=== PATIENT | male | born 1935 | race Caucasian/White ===

== ENCOUNTER 2021-04-16 02:23 | Inpatient (IN) | payer OTHER ==
[2021-04-16] VITALS (9 sets, daily range): BP systolic 86–106; BP diastolic 35–59
[~2021-04-16] VITALS: Ht 182.9 cm; Wt 115.8 kg
--- NOTE | ~2021-04-16 | EMS ---
[address] [address] EMS Patient Care Report Name: BEAU MCCLAIN Room #: [facility] M.RScotty#: [id number] Admission: Attend Phys: Discharge: Date of : [birth year] Report #: [id number] THIS REPORT FOR: //name// Report Transmitted: 04/16/2021 02:55 EMS Care Summary [facility] MED-ACT Incident [id number] @ 04/16/2021 01:25 Incident Location [address] [place] [address] Patient BEAU MCCLAIN Male, 86 Years 1935 Patient Address [address] [place] [address] Patient History Congestive Heart Failure (CHF),Stroke/CVA,Coronary Artery Bypass Graft (CABG), Patient Allergies Penicillin allergy, Patient Medications Other, Fish Oil, Xalatan, Spironolactone, Atorvastatin, Cephalexin, Calcium, Chief Complaint right leg pain and weeping Disposition Transported No Lights/[place]ana Dispatch Reason Sick Person Transported To [facility] Narrative Arriving on scene to find the patient, Beau Mcclain, lying in bed and appearing to be in no obvious distress. Beau stated that he started to have really bad leg pain rating at an 8 out of 10. He stated that it was due to the edema and that his leg was also weeping. Beau stated that this has happened [address] [address] EMS Patient Care Report Name: BEAU MCCLAIN Room #: [facility]..#: [id number] Admission: Attend Phys: Discharge: Date of : [birth year] Report #: [id number] before but not ever this painful. He requested to be transported to [facility], EMS informed him that Shawn is on High Volume. He stated that he would then like to be taken to [facility]. Beau was assisted via stand and sit onto the cot. Transporting to [facility], Beau was given NaCl for his low blood pressure, witch then improved his blood pressure. When arriving at [facility], Beau had a sudden onset of chest pain, EMS administered aspirin. There were no other additional findings on continuous assessments. Arriving at [facility] ED, Beau was taken to room 9 and moved via lateral sheet drag. Report and care was given to RN. Initial Vitals @01:37P: 73,BP: 93/56,SpO2: 88, @01:59P: 59,BP: 96/61,SpO2: 83, @01:51P: 97,SpO2: 96,OH Suspected: false @01:48P: 111,BP: 93/61,SpO2: 95, @01:59P: 192,SpO2: 80, @02:12P: 162, @02:02P: 161,SpO2: 95, @02:03P: 122,SpO2: 53, @02:13P: 86,BP: 100/56,SpO2: 97, @01:36P: 71,R: 16,BP: 92/56,Pain: 8/10,GCS: 15,Temp: 98F,SpO2: 92,Revised Trauma: 12, Impression Pain (Non-Traumatic) Procedures @01:54Saline Lock cc (18 ga) Site: Antecubital-LeftResponse: UnchangedFailed@02:00Normal Saline (.9% NaCl) 250cc (18 ga) Site: Antecubital-RightResponse: UnchangedSucceeded@02:02Surgical Mask on PatientResponse: Unchanged@02:25Aspirin - 324 Milligrams (mg) - OralResponse: Unchanged@01:5112-Lead ECG Timeline 01:24,Call Received 01:24,Psap Call 01:25,Dispatched 01:27,En Route 01:33,On Scene 01:35,At Patient 01:36,BP: 92/56 M,PULSE: 71,RR: 16 R,SPO2: 92 Ox,ETCO2: ,BG: ,PAIN: 8,GCS: 15, 01:37,BP: 93/56 M,PULSE: 73,RR: R,SPO2: 88 Ox,ETCO2: ,BG: ,PAIN: ,GCS: , 01:48,BP: 93/61 M,PULSE: 111,RR: R,SPO2: 95 Ox,ETCO2: ,BG: ,PAIN: ,GCS: , 01:51,12-Lead ECG, 01:51,BP: / M,PULSE: 97,RR: R,SPO2: 96 Ox,ETCO2: ,BG: ,PAIN: ,GCS: , 01:54,Saline Lock cc 18 ga Site: Antecubital-Left,Response: UnchangedFailed, [address] [address] EMS Patient Care Report Name: BEAU MCCLAIN Room #: PRE ER M.R.#: [id number] Admission: Attend Phys: Discharge: Date of : [birth year] Report #: [id number] 01:59,BP: / M,PULSE: 192,RR: R,SPO2: 80 Ox,ETCO2: ,BG: ,PAIN: ,GCS: , 01:59,BP: 96/61 M,PULSE: 59,RR: R,SPO2: 83 Ox,ETCO2: ,BG: ,PAIN: ,GCS: , 02:00,Normal Saline (.9% NaCl) 250cc 18 ga Site: Antecubital-Right,Response: UnchangedSucceeded, 02:02,Depart Scene 02:02,BP: / M,PULSE: 161,RR: R,SPO2: 95 Ox,ETCO2: ,BG: ,PAIN: ,GCS: , 02:02,Surgical Mask on Patient,Response: Unchanged 02:03,BP: / M,PULSE: 122,RR: R,SPO2: 53 Ox,ETCO2: ,BG: ,PAIN: ,GCS: , 02:12,BP: / M,PULSE: 162,RR: R,SPO2: Ox,ETCO2: ,BG: ,PAIN: ,GCS: , 02:13,BP: 100/56 M,PULSE: 86,RR: R,SPO2: 97 Ox,ETCO2: ,BG: ,PAIN: ,GCS: , 02:20,At Destination 02:25,Aspirin - 324 Milligrams (mg) - Oral,Response: Unchanged 02:43,Call Closed Disclaimer v1.1 Copyright 2020 [employer] This EMS Care Summary contains data elements from the applicable legal record (which may be displayed differently). It is designed to provide pertinent information for the following purposes: continuity of care, clinical quality, and state data reporting. The complete legal record is available to ED staff and administrators of the receiving hospital in [employer]'s Patient Tracker. All data is provided "as is."
[~2021-04-16 02:23] MED LIST: ALLERGY10 M1 PO; ASPIRIN EC81 M1 PO; CALCIUM 600 +1 EAC1 PO; CIPRO250 M1 PO; CITRACAL + BON1 EACH PO; FISH OIL 1,0001 EAC5 PO; GLUCOSAMINE &1 EAC1 PO; HYDROCODON-ACE1 EAC1 PO; LIPITOR20 MG PO; LISINOPRIL-HCT1 EAC1 PO; MULTIVITAMINS PO; PERCOCET 7.5-31 EACH PO
[2021-04-16 03:34] LABS: ABSOLUTE NEUTROPHILS 6.5 thou/uL (1.4-8.2); BASOPHILS 0.3 % (0.0-2.0); EOSINOPHILS 0.8 % (0.0-3.0); HEMATOCRIT 20.1 % (42.0-52.0); LYMPHOCYTES 10.3 % (24.0-44.0); MCH 25.7 pg (26.0-34.0); MCHC 31.7 g/dL (28.0-37.0); MONOCYTES 7.3 % (1.0-8.0); PLATELET COUNT 287 thou/uL (150-400); POLYS 81.3 % (36.0-66.0); RBC 2.48 mil/uL (4.50-6.00); RDW 18.6 % (10.5-14.5)
[2021-04-16 03:40] LABS: HEMOGLOBIN 6.4 gm/dL (14.0-18.0)
[2021-04-16 03:49] LABS: URINE BILIRUBIN NEGATIVE (Negative); URINE BLOOD NEGATIVE (Negative); URINE CLARITY CLEAR; URINE COLOR YELLOW; URINE GLUCOSE-RANDOM* 2+ (Negative); URINE KETONES NEGATIVE (Negative); URINE LEUKOCYTES-REFLEX NEGATIVE (Negative); URINE NITRITE-REFLEX NEGATIVE (Negative); URINE PROTEIN (DIPSTICK) NEGATIVE (Negative); URINE SPECIFIC GRAVITY <= 1.005 (1.005-1.035); URINE UROBILINOGEN 0.2 E.U./dl (0.2-1.0)
[2021-04-16 03:55] LABS: CALCIUM 7.8 mg/dL (8.5-10.1); CREATININE 1.6 mg/dL (0.7-1.3); POTASSIUM 4.4 mmol/L (3.5-5.1)
[2021-04-16 04:42] LABS: ALBUMIN 1.9 g/dL (3.4-5.0); TOTAL PROTEIN 5.1 g/dL (6.4-8.2)
--- NOTE | 2021-04-16 05:20 | NUR ---
HAND OFF TOOL SENT TO CCU AT THIS TIME
--- NOTE | 2021-04-16 05:28 | NUR ---
Called to give report and was told LINDSAY Martinez was with a pt in an isolated room and will call back
--- NOTE | 2021-04-16 05:42 | NUR ---
2x call to give report to LINDSAY Mi, was told LINDSAY Mi is still in a pt's room and will have him call back
--- NOTE | 2021-04-16 05:55 | NUR ---
CHARGE NURSE ATTEMPTED TO CALL REPORT AT THIS TIME. PLACED ON HOLD FOR 5 MINUTES
--- NOTE | 2021-04-16 06:57 | EKG ---
[place] [address] [facility] [place] [address] ELECTROCARDIOGRAM REPORT Name: BEAU CASTILLO Room #: 201-P [facility] IN M.R.#: [id number] Admission: 04/16/21 Attend Phys: Diann Degroot MD Discharge: Date of : [birth year] Report #: [id number] [facility] ED Test Date: 2021-04-16 Test Time: 03:13:05 Pat Name: BEAU CASTILLO Department: Room: 201 Gender: M Wound Care Coordinator: MERCYLOVE : 1935 Requested By: Samir Davila Order Number: [id number] MD: Henry Cross Measurements Intervals [place] Rate: 70 P: 0 WI: 31 QRS: -62 QRSD: 209 T: 116 QT: 520 QTc: 562 Interpretive Statements Ventricular-paced rhythm No further analysis attempted due to paced rhythm No previous ECG available for comparison Electronically Signed On 04-16-2021 6:56:52 CDT by Henry Cross [email or web address] <ELECTRONICALLY SIGNED> By: Henry Cross MD, [facility] 04/16/21 0656 0313 0313 Henry Cross MD, FACC /EPI
[2021-04-16 14:13] LABS: HEMATOCRIT 23.2 % (42.0-52.0); HEMOGLOBIN 7.4 gm/dL (14.0-18.0)
--- NOTE | 2021-04-16 14:30 | 2DMMODE ---
[facility] [place] [address] 2 D/M-MODE ECHOCARDIOGRAM Name: BEAU CASTILLO Room #: 201-P ADM IN M.R.#: [id number] Admission: 04/16/21 Attend Phys: Diann Degroot MD Discharge: Date of : [birth year] Report #: [id number] THIS REPORT FOR: cc: Wyatt Araujo MD, Michael B. MD Lundgren, Craig H. MD [facility] ~ APPROVED REPORT Study performed: 04/16/2021 12:37:21 EXAM: Comprehensive 2D, Doppler, and color-flow Echocardiogram Patient Location: Bedside Room #: 201 Status: routine BSA: 1.94 HR: 72 bpm BP: 89/45 mmHg Rhythm: Pacemaker Other Information Study Quality: Good Indications Atrial Fibrillation Pacemaker CAD Elevated Troponin Hypertension/HDD 2D Dimensions RVDd: 54.02 mm IVSd: 12.86 (7-11mm) LVOT Diam: 21.84 (18-24mm) LVDd: 54.70 mm PWd: 12.88 (7-11mm) Ascending Ao: 37.58 (22-36mm) LVDs: 46.93 (25-40mm) Left Atrium: 41.49 (27-40mm) Aortic Root: 41.10 mm IVC: 21.00 mm Volumes Left Atrial Volume (Systole) Single Plane 4CH: 77.01 mL Single Plane 2CH: 68.87 mL LA ESV Index: 47.00 mL/m2 Aortic Valve [facility] [address] [place] [address] 2 D/M-MODE ECHOCARDIOGRAM Name: BEAU CASTILLO Room #: 201-P [facility] IN ..#: [id number] Admission: 04/16/21 Attend Phys: Ml Portillo Discharge: Date of : [birth year] Report #: [id number] AoV Peak Romeo.: 2.36 m/s AO Peak Gr.: 22.27 mmHg LVOT Max P.72 mmHg AO Mean Gr.: 10.84 mmHg LVOT Mean P.48 mmHg AO V2 Mean: 1.51 m/s LVOT Max V: 0.96 m/s AO V2 VTI: 44.02 cm LVOT Mean V: 0.53 m/s SONAM (VTI): 1.74 cm2 LVOT V1 VTI: 20.50 cm SONAM Vmax: 1.53 cm2 SV (LVOT): 76.76 mL Pulmonary Valve PV Peak Romeo.: 0.86 m/s PV Peak Gr.: 2.94 mmHg Tricuspid Valve TR Peak Romeo.: 3.20 m/s TR Peak Gr.: 40.97 mmHg PA Pressure: 51.00 mmHg Left Ventricle Left ventricle is at the upper limits of normal. There is global hypokinesis of the left ventricle. Inferoapical aneurysm Mild concentric left ventricular hypertrophy. Left ventricular systolic function is severely decreased. LVEF 25%. This study is not technically sufficient to allow evaluation of the LV diastolic function due to atrial fibrillation. Right Ventricle Right ventricle is dilated. Right ventricle is hypokinetic. Atria Left atrium is dilated. Right atrium is dilated. Aortic Valve Aortic valve is calcified, trileaflet. Mild aortic regurgitation. Mild aortic stenosis. Mitral Valve Moderate mitral annular calcification Moderate mitral regurgitation. No evidence of mitral valve stenosis. Tricuspid Valve The tricuspid valve is normal in structure. There is mild tricuspid regurgitation. Estimated pulmonary artery pressure of 50 mmHg. There is moderate pulmonary hypertension. Pulmonic Valve [facility] [address] [place] [address] 2 D/M-MODE ECHOCARDIOGRAM Name: JONATHANBEAU Hilario Room #: 201-P [facility] IN [facility].#: [id number] Admission: 04/16/21 Attend Phys: Ml Portillo Discharge: Date of : [birth year] Report #: [id number] The pulmonary valve is normal in structure. Mild pulmonic regurgitation. Great Vessels The aortic root is normal in size. IVC is dilated and collapses <50% with inspiration. Pericardium There is no pericardial effusion. <Conclusion> Left ventricular systolic function is severely decreased. There is global hypokinesis of the left ventricle. Inferoapical aneurysm LVEF 25%. Both atria are dilated. Aortic valve is calcified, trileaflet. Mild aortic regurgitation, no stenosis. Moderate mitral annular calcification. Moderate mitral regurgitation. There is mild tricuspid regurgitation. Estimated pulmonary artery pressure of 50 mmHg. There is no pericardial effusion. <ELECTRONICALLY SIGNED> By: Jasson Curtis MD, FACC 04/16/21 [phone] Jasson Curtis MD, FACC /INF
[2021-04-17] VITALS (7 sets, daily range): BP systolic 93–109; BP diastolic 34–58
--- NOTE | 2021-04-17 01:58 | NUR ---
SLEEPING WITHOUT COMPLAINTS. CONTINUE TO ASSES. ASSIST TO REPOSITION PRN. NPO PAST NOC.
[2021-04-17 05:16] LABS: HEMATOCRIT 21.7 % (42.0-52.0); MCH 27.2 pg (26.0-34.0); MCHC 32.3 g/dL (28.0-37.0); MCV 84.1 fL (80.0-100.0); RBC 2.58 mil/uL (4.50-6.00); WBC 9.6 thou/uL (4.0-11.0)
--- NOTE | 2021-04-17 05:55 | NUR ---
RECEIVED REPORT FROM CANDACE MONTOYA.ASSUMED CARE AT 0100 AM.NPO SINCE MIDNIGHT.DENIES PAIN.ON PROTONIX GTT.MONITOR SHOWS V-PACED.POC CONTINUED.
--- NOTE | 2021-04-17 16:36 | NUR ---
Attempted to see pt this afternoon but he was down for EGD. Therapy evals deferred as well. Pt is from home with his and noted to have recent falls. He is being treated for UGIB and rec'd blood yesterday. Recent wt loss of more than 50 lbs. His pcp is Dr. Wyatt Araujo. Will reattempt to visit with the pt in the am for possible HH or SNF referral at [place].
--- NOTE | 2021-04-17 19:31 | NUR ---
Emd shift note: Pt remained safe and comfrotable. NPO during the morning hrs, EGD was performed w/o complications. (See results). K was 7.0 and will be rechecked tomorrow. Cont POC. No other concerns.
[2021-04-18 03:07] LABS: HEMOGLOBIN 6.7 gm/dL (14.0-18.0); MCV 84.4 fL (80.0-100.0)
[2021-04-18 03:09] LABS: HEMATOCRIT 21.5 % (42.0-52.0); MCH 26.4 pg (26.0-34.0); MCHC 31.3 g/dL (28.0-37.0); RBC 2.55 mil/uL (4.50-6.00); RDW 18.1 % (10.5-14.5); WBC 10.8 thou/uL (4.0-11.0)
[2021-04-18 03:30] LABS: CALCIUM 8.1 mg/dL (8.5-10.1); CREATININE 1.8 mg/dL (0.7-1.3); POTASSIUM 4.5 mmol/L (3.5-5.1)
[2021-04-18 04:21] VITALS: BP 101/74
[2021-04-18 05:30] VITALS: BP 90/42; BP 98/53
--- NOTE | 2021-04-18 06:44 | NUR ---
Assumed pt's care this pm shift. Alert and oriented. Low BP this shift. Meds infusing per emar. Pt slept off and on this shift. Pt's hgb 6.7 this am. Pt currently receiving 1 PRBC as ordered. Blood bank called for Rh factor clarification. Pt's blood is A positive, while blood product is A negative. Per Arsi (lab), pt ok to receive blood product. Pt tolerating well. No s/sx of acute distress noted. Fall precaution remains in place. Call light within reach. Nursing to continue to monitor.
[2021-04-18 08:00] VITALS: BP 96/50
[2021-04-18 12:00] VITALS: BP 109/90
--- NOTE | 2021-04-18 12:07 | NUR ---
Followup visit made to pt at bedside this am. CM role introduced. Pt anticipating colonoscopy as he is still "loosing blood". He is open to hh/snf but wanting to know whats causing his anemia. No weekend dc anticipated. SNF listing left at bedside for review with the family. Referral faxed to [facility] to see if they can accept at dc.
--- NOTE | 2021-04-18 12:37 | HC ---
[facility] [place] [address] [place] [address] CONSULTATION Name: BEAU CASTILLO Room #: 201-P [facility] IN ..#: [id number] Admission: 04/16/21 Attend Phys: Samuel Shi MD Discharge: Date of : [birth year] Report #: [id number] THIS REPORT FOR: cc: Wyatt Araujo MD,Rafael Hernandez MD, MD ~ DATE OF SERVICE: 04/16/2021 CHIEF COMPLAINT: Right pretibial ulceration. HISTORY OF PRESENT ILLNESS: This is an 86-year-old male patient admitted to the hospital for evaluation of a right leg wound. He has a history of hypertension, hyperlipidemia and some peripheral vascular disease. He was noted to have a hemoglobin of 6.4 while in the ER and has been admitted for further treatment. I have been asked to see him with regard to wound care. The patient denies significant pain unless the wound is touched. PAST MEDICAL HISTORY: Hypertension, hypercholesterolemia, sleep apnea requiring CPAP, coronary artery disease status post CABG in 2008, previous left ankle fusion. SOCIAL HISTORY: The patient admits to special occasion of alcohol use, prior smoker. FAMILY HISTORY: Noncontributory. MEDICATIONS: Include Caltrate, Lipitor, Anahi, lisinopril, hydrochlorothiazide, aspirin, fish oil. ALLERGIES: PENICILLIN AND ANTIPERSPIRANTS. REVIEW OF SYSTEMS: CONSTITUTIONAL: Denies fever, chills or weight loss. NEUROLOGICAL: The patient denies focal weakness, numbness or tingling. EYES: The patient denies visual changes, redness or drainage. ENT: The patient denies earache, nasal drainage, sore throat. CARDIOVASCULAR: The patient denies chest pain, palpitations, diaphoresis. PULMONARY: No cough, shortness of breath. GASTROINTESTINAL: Denies nausea, vomiting, diarrhea or abdominal pain ORTHOPEDIC: The patient notes the ulceration on his right lower leg. Others systems in a 14-point review of systems are negative. PHYSICAL EXAMINATION: VITAL SIGNS: Include temperature 97.3, pulse 66, respiratory rate 16, blood pressure 89/45. [facility] [address] [place] [address] CONSULTATION Name: JONATHANBEAU Hilario Room #: 201-P [facility] IN [facility]#: [id number] Admission: 04/16/21 Attend Phys: Samuel Shi MD Discharge: Date of : [birth year] Report #: [id number] GENERAL: This is a chronically ill-appearing male patient appears to be in minimal distress. HEENT: Head is normocephalic. Nose and throat clear. NECK: Supple. LUNGS: Diminished. HEART: Irregular without murmur. ABDOMEN: Soft. Bowel sounds present. EXTREMITIES: Lower extremities demonstrate diminished distal pulses. Trace edema noted. He has a circular ulceration versus traumatic injury to the right pretibial region. It is mostly covered with fibrin and some dried crusting. It is tender, but is not overtly infected. NEUROLOGIC: The patient is alert, does seem to move all 4 extremities spontaneously. LABORATORY DATA: Include sodium 135, potassium 4.4, chloride 100, CO2 of 23, BUN is 107, creatinine 1.6, glucose 135, albumin is 1.9. White blood cell count 8000 with a hemoglobin 6.4. CLINICAL IMPRESSION: 1. Chronic ulceration, possibly venous versus traumatic wound to the right lower leg. 2. Peripheral vascular disease by clinical exam 3. Anemia. 4. Acute on chronic renal failure with dehydration. 5. Elevated liver function test 6. Hypertension. 7. Hyperlipidemia. 8. Coronary artery disease status post CABG. 9. Severe protein-calorie malnutrition with albumin 1.9. RECOMMENDATIONS: At this point, we will recommend topical gentamicin ointment, Xeroform, Kerlix daily. We will recommend arterial Dopplers to evaluate blood flow, antibiotics as ordered. Elevation of the legs for edema control. Continue with aggressive management of other underlying medical issues and nutritional support to maximize wound healing. I appreciate being asked to see him in consultation. <ELECTRONICALLY SIGNED> By: Rafael Cheung MD 04/18/21 1237 1359 [id number] Rafael Cheung MD /nt
[2021-04-18 14:34] LABS: HEMATOCRIT 24.3 % (42.0-52.0); HEMOGLOBIN 7.4 gm/dL (14.0-18.0)
[2021-04-18 16:00] VITALS: BP 118/58
[2021-04-18 19:14] VITALS: BP 94/46
[2021-04-19 00:16] VITALS: BP 95/44
[2021-04-19 03:40] VITALS: BP 91/43
[2021-04-19 05:16] LABS: HEMATOCRIT 24.7 % (42.0-52.0); HEMOGLOBIN 7.6 gm/dL (14.0-18.0); MCH 26.1 pg (26.0-34.0); MCHC 30.9 g/dL (28.0-37.0); MCV 84.3 fL (80.0-100.0); RBC 2.93 mil/uL (4.50-6.00); RDW 18.2 % (10.5-14.5); WBC 8.7 thou/uL (4.0-11.0)
[2021-04-19 05:21] LABS: CALCIUM 8.1 mg/dL (8.5-10.1); CREATININE 1.8 mg/dL (0.7-1.3); POTASSIUM 4.4 mmol/L (3.5-5.1)
[2021-04-19 07:15] VITALS: BP 88/46; BP 89/48
--- NOTE | 2021-04-19 07:49 | NUR ---
Assumed pt's care this pm shift. Alert and oriented. VSS on 4L. Pt did voiced feeling depressed about "everything going on". Pt was cooperative with care. Slept off and on. Fall precaution remains in place. Protonix per emar. Call light within reach.
[2021-04-19 11:30] VITALS: BP 94/48
[2021-04-19 15:30] VITALS: BP 93/42
[2021-04-20 04:16] VITALS: BP 98/43
--- NOTE | 2021-04-20 06:55 | NUR ---
Assumed pt's care this pm shift. Alert and oriented. Cooperative with care. On 2L NC. Vpaced on tele. Slept well this shift. Weeping to THANH/RLL edema. Now on clear liquid diet. Plans for colonscopy wednesday. Fall precaution remains in place. Call light within reach. Pt appropriate with use of call light. Per beginning of shift change report, per day RN, son wanting pt to be chemical code only. No orders put in regarding that. Pt remains full code at this time. Will pass on to day RN.
[2021-04-20 07:10] VITALS: BP 94/51
[2021-04-20 11:20] VITALS: BP 98/45
[2021-04-20 15:30] VITALS: BP 98/49
[2021-04-20 16:57] LABS: ABSOLUTE NEUTROPHILS 7.1 thou/uL (1.4-8.2); BASOPHILS 0.3 % (0.0-2.0); EOSINOPHILS 1.3 % (0.0-3.0); HEMATOCRIT 23.7 % (42.0-52.0); HEMOGLOBIN 7.4 gm/dL (14.0-18.0); LYMPHOCYTES 8.2 % (24.0-44.0); MCHC 31.2 g/dL (28.0-37.0); MCV 83.3 fL (80.0-100.0); MONOCYTES 8.4 % (1.0-8.0); PLATELET COUNT 272 thou/uL (150-400); POLYS 81.8 % (36.0-66.0); RBC 2.85 mil/uL (4.50-6.00); RDW 18.5 % (10.5-14.5); WBC 8.7 thou/uL (4.0-11.0)
[2021-04-20 17:20] LABS: ANISOCYTOSIS 2+; HYPOCHROMASIA 2+; OVALOCYTES FEW
[2021-04-20 19:55] VITALS: BP 98/45
[2021-04-21 04:45] VITALS: BP 96/53
--- NOTE | 2021-04-21 05:17 | NUR ---
PT IS ALERT AND ORIENTED X4. LOWER SOTO IS WRAPED IN KERLIX. LUNGS ARE DIMINISHED. ON 2 LITERS NASAL CANULA. V-PACED ON THE PHYSICAL THERAPY TEACHER. GOLITGHLY DRANK ON BOWEL PREP. NPO AFTER MIDNIGHT FOR PREP. BEDSIDE COMMODE AT BEDSIDE FOR ASSISTACE. CALL LIGHT WITHIN REACH IF NEEDS ASSISTANCE.
[2021-04-21 05:30] LABS: HEMATOCRIT 24.4 % (42.0-52.0); HEMOGLOBIN 7.6 gm/dL (14.0-18.0); MCH 26.2 pg (26.0-34.0); MCHC 31.1 g/dL (28.0-37.0); MCV 84.4 fL (80.0-100.0); RBC 2.9 mil/uL (4.50-6.00); WBC 8.7 thou/uL (4.0-11.0)
[2021-04-21 05:41] LABS: CALCIUM 8.3 mg/dL (8.5-10.1); CREATININE 1.3 mg/dL (0.7-1.3); POTASSIUM 3.8 mmol/L (3.5-5.1)
[2021-04-21 11:47] VITALS: BP 93/42
[2021-04-21 15:55] VITALS: BP 92/50
--- NOTE | 2021-04-21 17:06 | PATH ---
[facility] [address] [place] [address] PATHOLOGY RPT PROCEDURE Name: YAON CASTILLO Room #: 201-P ADM IN M.R.#: [id number] Admission: 04/16/21 Date of : [birth year] Discharge: Report #: [id number] Path Case #: [id number] [facility] Accession Number: [id number] . 01 Material submitted: . PART A: duodenum - DUODENAL BX R/O SPRUE PART B: gastrointestinal site - GASTRITIS BX R/O H. PYLORI . 01 Clinical history: . HX OF ANEMIA . 02 Diagnosis: A. Small bowel mucosa, duodenum rule out sprue, endoscopic biopsy: - No diagnostic abnormalities present. - Negative for villous blunting or increase in intraepithelial lymphocytes. . B. Gastric mucosa, gastritis rule out H. pylori, endoscopic biopsy: - Mild chronic inflammation. - Negative for intestinal metaplasia or atrophy. - Negative for Helicobacter pylori (properly controlled immunohistochemical stain performed). (IUV/db; 04/21/2021) LBQ 04/21/2021 1310 Local . 02 Electronically signed: . Kae Roberts MD, Pathologist NPI- [id number] . 01 Gross description: . A. The specimen is received in formalin, labeled "Yoan Castillo, duodenal BX R/O Sprue" and consists of multiple horta irregular tissues aggregating 0.5 x 0.5 x 0.2 cm which are submitted in toto in A1. . B. The specimen is received in formalin, labeled "JohnyYoan mccord, gastritis BX R/O H-pylori" and consists of multiple horta tissues aggregating 0.7 x 0.5 x 0.2 cm which are submitted in toto in B1.([place]; 04/18/2021) DKA/DKA 04/18/2021 1233 Local . 02 Pathologist provided ICD-10: K29.50 . 02 CPT . 895302, 800387, D36255 Specimen Comment: A courtesy copy of this report has been sent to [phone], [place] [address] PATHOLOGY RPT PROCEDURE Name: YOAN CASTILLO Room #: 201-P [facility] IN M.R.#: [id number] Admission: 04/16/21 Date of : [birth year] Discharge: Report #: [id number] Path Case #: [id number] Specimen Comment: [id number], Specimen Comment: Report sent to , DR GARCIA / DR DAWKINS Performed at: [address], [place] [id number] MD Uriel Fitzpatrick MD Phone: [phone] Performed at: [address] [id number] MD Kae Roberts MD Phone: [phone]
[2021-04-21 22:15] VITALS: BP 92/41
[2021-04-22 03:09] VITALS: BP 94/46
[2021-04-22 07:21] VITALS: BP 91/53
--- NOTE | 2021-04-22 09:56 | NUR ---
PT UP TO CHAIR WITH PT AND ABLE TO VOID STANDING UP.
[2021-04-22 11:30] VITALS: BP 91/51
[2021-04-22 12:02] LABS: ALBUMIN 2.1 g/dL (3.4-5.0); DIRECT BILIRUBIN 0.4 mg/dL (<0.1-0.2); TOTAL BILIRUBIN 0.7 mg/dL (0.2-1.0); TOTAL PROTEIN 5.3 g/dL (6.4-8.2)
--- NOTE | 2021-04-22 13:27 | NUR ---
CHECK PVR WAS 46MLS. SENT MESSAGE TO DR. KAMARA
[2021-04-22] MEDS ORDERED: PROTONIX40 M2 PO (14:16)
--- NOTE | 2021-04-22 15:09 | NUR ---
CHECKED ROOM AIR OXYGEN SATURATION WAS BETWEEN 94 AND 96%.
--- NOTE | 2021-04-22 15:09 | NUR ---
Rec call from Joseph Burnett [phone] last evening regarding skilled rehab for patient. She reports family interested in [facility] location. Faxed referral. Sp with [facility] this am. They report rec referral and accepting of patient. [facility] with waiver. Spoke with patient regarding post acute care he is in agreement. Updated phys [facility] can accept for dc for skilled care. Orders rec and faxed. Chart copy completed. 1730 transport via [facility] van arranged by [facility]. notified dtr Hortencia, son Dheeraj and patient who are all in agreement.
[2021-04-22 16:00] VITALS: BP 99/56
--- NOTE | 2021-04-22 16:06 | PATH ---
[facility] [address] [address] PATHOLOGY RPT PROCEDURE Name: YOAN CASTILLO Room #: 201-P [facility] IN M.R.#: [id number] Admission: 04/16/21 Date of : [birth year] Discharge: Report #: [id number] Path Case #: [id number] [facility] Accession Number: [id number] . 01 Material submitted: . PART A: cecum - CECAL POLYPS X2. Modifiers: X2 PART B: cecum - CECAL MASS PART C: colon - TRANSVERSE POLYP X1. Modifiers: transverse, X1 . 01 Clinical history: . . COLONOSCOPY ANEMIA, UGIB CECAL POLYPS/DIVERTICULOSIS . 02 Diagnosis: A. Polyp x2, cecal polyps, endoscopic biopsy: - Tubular adenoma. - Negative for high grade dysplasia. . B. Large intestine, cecal mass, endoscopic biopsy: - Mild focal active colitis. - Negative for dysplasia and malignancy. . C. Polyp, transverse polyp, endoscopic biopsy: - Tubular adenoma. - Negative for high grade dysplasia. . (IUV:mml; 04/22/2021) QL 04/22/2021 1423 Local . 02 Comment: Part B: Sections of the colonic mucosa designated "cecal mass" show focal cryptitis, and a moderately cellular lamina propria composed predominantly of lymphocytes and plasma cells and occasional eosinophils. Surface ulceration is not identified. There are no crypt abscesses, granulomas or viral inclusions. The process affects all the fragments with a similar intensity. Given the description, the differential diagnosis includes focal mild active colitis of self-limited etiology, or infectious-type etiology, or medication/drug-induced colitis as well as reaction to bowel preparation. Please correlate with clinical as well as endoscopic findings. . (IUV:mml; 04/22/2021) . 02 Electronically signed: . Kae Roberts MD, Pathologist [address] [address] PATHOLOGY RPT PROCEDURE Name: YOAN CASTILLO Room #: 201-P [facility] IN [facility]#: [id number] Admission: 04/16/21 Date of : [birth year] Discharge: Report #: [id number] Path Case #: [id number] [id number] . 01 Gross description: . A. The specimen is received in formalin, labeled "Yoan Castillo cecal polyp". Received are two segments of pale horta tissue measuring 0.3 and 0.7 cm in maximum dimensions. The specimen is submitted entirely in cassette A1. . B. The specimen is received in formalin, labeled "Yoan Castillo, cecal mass". Received are five segments of pale horta tissue ranging in size from 0.2-0.5 cm in maximum dimensions. The specimen is submitted entirely in cassette B1. . C. The specimen is received in formalin, labeled "Yoan Johny, transverse colon polyp". Received is a segment of pale horta tissue measuring 0.4 cm in maximum dimensions. The specimen is submitted entirely in cassette C1. (CAA; 04/21/2021) QAC/QAC 04/21/2021 1531 Local . 02 Pathologist provided ICD-10: D12.0, K52.9, D12.3 . 02 CPT . 049939, 719969, 220147 Specimen Comment: A courtesy copy of this report has been sent to [phone] Specimen Comment: [id number], Specimen Comment: Report sent to , DR GARCIA / DR SAINI Performed at: [address], [place] [id number] MD Uriel Fitzpatrick MD Phone: [phone] Performed at: [address] [id number] MD Kae Roberts MD Phone: [phone]
--- NOTE | 2021-04-22 16:57 | NUR ---
DISCONTINUE IV AND TELE. REPORT CALLED TO CHANDLER FERNANDEZ. PT IS SCHEDULED FOR TRANSPOERT AT 1730 THIS EVENING.
--- NOTE | 2021-04-22 17:58 | NUR ---
PT TRANSFERRED TO [facility] AT THIS TIME VIA WHEEL CHAIR VAN.
--- NOTE | 2021-04-23 08:16 | P ---
[facility] [place] [address] PROCEDURE REPORT Name: BEAU CASTILLO Room #: 201-P [facility] IN ..#: [id number] Admission: 04/16/21 Attend Phys: Samuel Shi MD Discharge: 04/22/21 Date of : [birth year] Report #: [id number] THIS REPORT FOR: cc: Wyatt Araujo MD, Michael B. MD McElhinney, Christian C. MD ~ cc: Rafael Cheung MD, Justyn Corcoran MD DATE OF SERVICE: 04/17/2021 PROCEDURE PERFORMED: Upper endoscopy with biopsies. HISTORY OF PRESENT ILLNESS: The patient is an 86-year-old male who was admitted for right leg wound, was noted to have significant anemia with a hemoglobin of 6.4. Denies any melanotic stools or rectal bleeding. He has had a decreased appetite for 6 months, lost 50 pounds. Denies any nausea, vomiting or dysphagia. No history of heartburn. He does take aspirin. He was Hemoccult positive on admission. He underwent a transfusion of 1 unit of packed cells. His hemoglobin today is 7.0. He has undergone a CT scan of the chest, abdomen and pelvis, which showed bilateral pleural effusions, extensive colonic diverticulosis. No evidence of diverticulitis. Several liver lesions were noted, most suggestive of hepatic cysts. CT scan of the chest, bilateral pleural effusions with some minimal bilateral posterior atelectasis, otherwise clear. Well-circumscribed fat density pleural based mass in the left lower lateral hemithorax, most compatible with a pleural lipoma. Plan is for upper endoscopy today. We discussed possible colonoscopy; however, the patient refused. Last colonoscopy was many years ago. DESCRIPTION OF PROCEDURE: The risks and benefits of the procedure were explained to the patient, those risks including but not limited to bleeding, perforation and the risk of sedation. He understood these risks and gave informed consent. Sedation was given using propofol per anesthesia. Next, using a standard Olympus upper endoscope, the scope was placed in the patient's mouth and advanced under direct vision through the esophagus, stomach and into the second portion of the duodenum. The larynx was normal in appearance. The esophagus was normal throughout. The GE junction was normal. There was a diffuse moderate gastritis noted in the fundus and body. No evidence of ulcerations or erosions. No evidence of bleeding. Biopsies were obtained to rule out H. pylori. The gastric antrum was normal. The pylorus was normal and patent. The duodenal bulb, first and second portion were all normal. Random biopsies were also obtained of the duodenum to rule out the possibility of celiac sprue. The scope was then withdrawn and the procedure terminated. The patient tolerated the procedure well. IMPRESSION: 1. Gastritis. No evidence of bleeding. [facility] [address] [place] [address] PROCEDURE REPORT Name: BEAU CASTILLO Room #: 201-P DIS IN M.R.#: [id number] Admission: 04/16/21 Attend Phys: Samuel Shi MD Discharge: 04/22/21 Date of : [birth year] Report #: [id number] 2. Otherwise, normal upper endoscopy. RECOMMENDATIONS: 1. Await biopsy results. 2. Continue PPI therapy. 3. Continue to monitor hemoglobin. 4. We will discuss possible colonoscopy again with the patient. Thank you for allowing me to participate in his care. <ELECTRONICALLY SIGNED> By: Madi Rick MD 04/23/21 0816 [id number] [id number] Madi Rick MD /nt
[2021-04-24 09:08] LABS: CEA 3.1 ng/mL (0.0-4.7); PSA 1.7 ng/mL (0.0-4.0)
== END 2021-04-22 18:06 | DRG 377 ==
LOC: ER 02:23 → 2N 05:05 → EROBS 05:05 → 2N 05:52
PROVIDERS: Emergency Medicine; Nurse Practitioner; Nurse Practitioner Family; ADMIT Hospitalist; ATTEND Hospitalist
DX: K29.71 Gastritis, unspecified, with bleeding (principal); E43 Unspecified severe protein-calorie malnutrition; S22.32XA Fracture of one rib, left side, initial encounter for closed fracture; N17.9 Acute kidney failure, unspecified; L03.115 Cellulitis of right lower limb; I50.20 Unspecified systolic (congestive) heart failure; L97.819 Non-pressure chronic ulcer of other part of right lower leg with unspecified severity; I13.0 Hypertensive heart and chronic kidney disease with heart failure and stage 1 through stage 4 chronic kidney disease, or unspecified chronic kidney disease; K57.31 Diverticulosis of large intestine without perforation or abscess with bleeding; E78.00 Pure hypercholesterolemia, unspecified; D64.9 Anemia, unspecified; I95.9 Hypotension, unspecified; I73.9 Peripheral vascular disease, unspecified; I25.10 Atherosclerotic heart disease of native coronary artery without angina pectoris; E86.0 Dehydration; S81.801A Unspecified open wound, right lower leg, initial encounter; K59.00 Constipation, unspecified; R74.01 Elevation of levels of liver transaminase levels; I87.2 Venous insufficiency (chronic) (peripheral); R53.81 Other malaise; N18.32 Chronic kidney disease, stage 3b; I34.0 Nonrheumatic mitral (valve) insufficiency; K63.5 Polyp of colon; K64.8 Other hemorrhoids; Z88.8 Allergy status to other drugs, medicaments and biological substances; Z95.1 Presence of aortocoronary bypass graft; Z88.0 Allergy status to penicillin; Z68.34 Body mass index [BMI] 34.0-34.9, adult; Z87.891 Personal history of nicotine dependence; Z20.822 Contact with and (suspected) exposure to COVID-19
CPT/HCPCS: 10081; 62110; 62900; 70005

== ENCOUNTER 2021-05-06 15:00 | Emergency (ER) | payer OTHER ==
[~2021-05-06] VITALS: Ht 182.9 cm; Wt 81.7 kg
--- NOTE | ~2021-05-06 | EMS ---
[facility] [address] [place] [address] EMS Patient Care Report Name: BEAU CASTILLO Room #: DEP ALEKS Soto#: [id number] Admission: 05/06/21 Attend Phys: Discharge: 05/06/21 Date of : [birth year] Report #: [id number] THIS REPORT FOR: //name// Report Transmitted: 05/06/2021 18:16 EMS Care Summary [facility] MED-ACT Incident [id number] @ 05/06/2021 14:24 [address] [place] [address] Patient BEAU CASTILLO Male, 86 Years 1935 Patient Address [address] [place] [address] Patient History Congestive Heart Failure (CHF),Stroke/CVA,Coronary Artery Bypass Graft (CABG), Patient Allergies Penicillin allergy, Patient Medications Xalatan, Other, Fish Oil, Cephalexin, Calcium, Spironolactone, Atorvastatin, Chief Complaint Leg pain Disposition Transported No Lights/[place] [facility] Reason Psychiatric Problem/Abnormal Behavior/Suicide Attempt Transported To [facility] Narrative [id number] dispatched to above address for Behavioral, Code 2 response. Upon arrival we found an 86 year old male sitting in his chair. Staff stated he told them that if they did not send him to the hospital, he would harm himself. [facility] [address] [place] [address] EMS Patient Care Report Name: BEAU CASTILLO Room #: DEP [facility]#: [id number] Admission: 05/06/21 Attend Phys: Discharge: 05/06/21 Date of : [birth year] Report #: [id number] Pt is c/o not getting good care at the facility. He has leg pain from previous wounds that are weeping. He said he "could not spend another night in there". He was admitted to the facility a couple weeks ago for rehab after being admitted to the hospital for pleural effusion. Staff at the facility said they put him on oxygen 1 week ago for shortness of breath. Pt said his shortness of breath is normal for him and is not worse today. Assessment and treatment as noted. Pt stood and sat on stretcher with assistance, loaded in ambulance. Vitals monitored throughout transport. He was transported to [place] per his request. He arrived alert with stable vitals. Care transferred to AUDITOR TAX in room 5. Initial Vitals @14:37P: 72,R: 18,SpO2: 99,IL Suspected: false @14:52P: 76,R: 18,BP: 105/69,Pain: 4/10,GCS: 15,SpO2: 94,Revised Trauma: 12, @14:34P: 80,R: 18,BP: 108/65,Pain: 4/10,GCS: 15,Temp: 97.8F,SpO2: 96,Revised Trauma: 12, Impression Extremity Pain Procedures @14:43Surgical Mask on PatientResponse: Unchanged@PTAOxygen FlowRate: 3 Device: Nasal Cannula (NC) Response: UnchangedSucceeded Timeline PHYSICIAN OFFICE ASSISTANT,Oxygen FlowRate: 3 Device: Nasal Cannula (NC) Response: UnchangedSucceeded, 14:22,Call Received 14:22,Psap Call 14:24,Dispatched 14:25,En Route 14:29,On Scene 14:31,At Patient 14:34,BP: 108/65 M,PULSE: 80,RR: 18 R,SPO2: 96 Ox,ETCO2: ,BG: ,PAIN: 4,GCS: 15, 14:37,BP: / M,PULSE: 72,RR: 18 R,SPO2: 99 Ox,ETCO2: ,BG: ,PAIN: ,GCS: , 14:43,Surgical Mask on Patient,Response: Unchanged 14:44,Depart Scene 14:52,BP: 105/69 M,PULSE: 76,RR: 18 R,SPO2: 94 Ox,ETCO2: ,BG: ,PAIN: 4,GCS: 15, 14:57,At Destination 15:12,Call Closed Disclaimer v1.1 Copyright 2020 [employer] [address] [address] EMS Patient Care Report Name: BEAU CASTILLO Room #: DEP Charles#: [id number] Admission: 05/06/21 Attend Phys: Discharge: 05/06/21 Date of : [birth year] Report #: [id number] This EMS Care Summary contains data elements from the applicable legal record (which may be displayed differently). It is designed to provide pertinent information for the following purposes: continuity of care, clinical quality, and state data reporting. The complete legal record is available to ED staff and administrators of the receiving hospital in [facility]'s Patient Tracker. All data is provided "as is."
[~2021-05-06 15:00] MED LIST changes: +PROTONIX40 M2 PO
[2021-05-06 15:31] LABS: ABSOLUTE NEUTROPHILS 8.4 thou/uL (1.4-8.2); BASOPHILS 0.5 % (0.0-2.0); EOSINOPHILS 1.7 % (0.0-3.0); HEMATOCRIT 27.8 % (42.0-52.0); HEMOGLOBIN 8.3 gm/dL (14.0-18.0); LYMPHOCYTES 5.4 % (24.0-44.0); MCH 24.1 pg (26.0-34.0); MCV 80.6 fL (80.0-100.0); MONOCYTES 8.3 % (1.0-8.0); PLATELET COUNT 313 thou/uL (150-400); POLYS 84.1 % (36.0-66.0); RBC 3.45 mil/uL (4.50-6.00); RDW 20.8 % (10.5-14.5)
[2021-05-06 15:37] LABS: CALCIUM 8.7 mg/dL (8.5-10.1); CREATININE 2.2 mg/dL (0.7-1.3); POTASSIUM 5.1 mmol/L (3.5-5.1)
[2021-05-06 15:43] LABS: ALBUMIN 2.4 g/dL (3.4-5.0); TOTAL BILIRUBIN 0.7 mg/dL (0.2-1.0); TOTAL PROTEIN 6.1 g/dL (6.4-8.2)
[2021-05-06 15:58] LABS: ANISOCYTOSIS 2+; BURR CELLS OCCASIONAL; MACROCYTES FEW; POLYCHROMASIA OCCASIONAL
[2021-05-06 17:06] LABS: URINE BILIRUBIN NEGATIVE (Negative); URINE BLOOD 1+ (Negative); URINE CLARITY CLEAR; URINE COLOR YELLOW; URINE GLUCOSE-RANDOM* NEGATIVE (Negative); URINE KETONES NEGATIVE (Negative); URINE LEUKOCYTES-REFLEX NEGATIVE (Negative); URINE NITRITE-REFLEX NEGATIVE (Negative); URINE PROTEIN (DIPSTICK) NEGATIVE (Negative); URINE SPECIFIC GRAVITY 1.025 (1.005-1.035); URINE UROBILINOGEN 0.2 E.U./dl (0.2-1.0)
[2021-05-06 18:46] VITALS: BP 109/75
[2021-05-06 18:50] LABS: MUCUS 0-3 Light strn/LPF (None Seen); SQUAMOUS 0-3 Few /LPF (0-3); URINE WBC-REFLEX 0-5 Rare /HPF (0-5)
[2021-05-06 18:51] LABS: BACTERIA-REFLEX 1-9 Few /HPF (None Seen); CRYSTALS None Seen /LPF (None Seen); HYALINE CASTS 0-3 Few /LPF (None Seen); URINE RBC 1-2 Rare /HPF (NONE SEEN)
== END 2021-05-06 18:47 | disposition home or self-care (01) ==
LOC: ER 15:00
PROVIDERS: Emergency Medicine
DX: N47.1 Phimosis (principal); R33.9 Retention of urine, unspecified; I10 Essential (primary) hypertension; N17.9 Acute kidney failure, unspecified; J44.9 Chronic obstructive pulmonary disease, unspecified; E78.00 Pure hypercholesterolemia, unspecified; Z98.890 Other specified postprocedural states; Z79.899 Other long term (current) drug therapy; Z79.891 Long term (current) use of opiate analgesic; Z79.1 Long term (current) use of non-steroidal anti-inflammatories (NSAID); Z88.8 Allergy status to other drugs, medicaments and biological substances; Z88.0 Allergy status to penicillin; Z87.891 Personal history of nicotine dependence